=== PATIENT | female | born 1955 | race Two or more races ===

== ENCOUNTER → 2018-09-15 | Outpatient (CLI) | payer MEDICAID | END | disposition home or self-care (01) | LOC: Rad HDHVI 12:53 | PROVIDERS: ATTEND Internal Medicine | DX: I25.10 Atherosclerotic heart disease of native coronary artery without angina pectoris (principal); I11.9 Hypertensive heart disease without heart failure; R07.89 Other chest pain | CPT/HCPCS: 93306 ==

== ENCOUNTER → 2018-09-30 | Outpatient (CLI) | payer MEDICAID ==
[~2018-09-30] VITALS: Ht 162.6 cm; Wt 63.5 kg
== END | disposition home or self-care (01) ==
LOC: Rad HDHVI 12:22
PROVIDERS: ATTEND Internal Medicine Cardiovascular Disease
DX: I25.10 Atherosclerotic heart disease of native coronary artery without angina pectoris (principal); I10 Essential (primary) hypertension; E78.5 Hyperlipidemia, unspecified; R06.00 Dyspnea, unspecified; M54.9 Dorsalgia, unspecified; G89.29 Other chronic pain; Z87.891 Personal history of nicotine dependence
CPT/HCPCS: 78452; 93017; 96374; A9500

== ENCOUNTER 2018-11-04 09:02 | Day surgery (SDC) | payer MEDICAID ==
[2018-11-02 14:18] LABS: Basophils # (auto) 0 uL; Basophils % (auto) 0.2 % (0.0-2.0); Eosinophils # (auto) 0.2 uL; Eosinophils % (auto) 2.4 % (0.0-7.0); Hematocrit 38.2 % (36.0-46.0); Hemoglobin 12.7 g/dL (12.2-16.2); Lymphocytes # (auto) 2.3 uL; Lymphocytes % (auto) 30.8 % (10.0-50.0); Mean Corpuscular Hemoglobin 32.3 pg (28.0-32.0); Mean Corpuscular Hgb Conc. 33.3 g/dL (32.0-36.0); Mean Corpuscular Volume 97.1 fL (80.0-100.0); Monocytes # (auto) 0.6 uL; Monocytes % (auto) 7.4 % (0.0-12.0); Neutrophils # (auto) 4.4 uL; Neutrophils % (auto) 59.2 % (37.0-80.0); Nucleated Red Blood Cells % 0.1 %; Platelet Count (auto) 256 10^3/uL (140-450); Red Blood Cells 3.93 10^6/uL (4.0-5.20); Red Cell Distribution Width 14.2 % (11.8-14.3); White Blood Cell 7.5 10^3/uL (4.4-10.8)
[2018-11-02 14:34] LABS: INR < 0.93 (0.9-1.15)
[2018-11-02 14:42] LABS: Albumin 3.7 g/dL (3.4-5.0); BUN/Creatinine Ratio 26.7; Calcium 9.6 mg/dL (8.5-10.1); Potassium 3.9 mmol/L (3.5-5.1)
[2018-11-02 14:44] LABS: Urine Bacteria FEW /hpf (None Seen); Urine Blood TRACE /uL (Negative); Urine Hyaline Cast MOD /lpf (0 - 2); Urine Mucus FEW (None Seen); Urine Specific Gravity 1.023 (1.001-1.035); Urine WBC 11 /hpf (0 - 5)
[2018-11-02 14:45] LABS: Bilirubin, Total 0.3 mg/dL (0.2-1.0); Total Protein 7.3 g/dL (6.4-8.2)
[~2018-11-04] VITALS: Ht 160 cm; Wt 63.5 kg
[~2018-11-04 09:02] MED LIST: AMLO5TAB15 PO; ATOR40TA52 PO; CALC600T57 PO; CHOL1000 PO; CYCL1TAB18 PO; DICL1GEL35 TD; FLUO60TA7 PO; GABA300C10 PO; HYDR-392 PO; IBUP800T24 PO; LIDO5DIS21 TOP; PANT40TA2 PO
[2018-11-04] MEDS ORDERED: ceFAZolin 1GM/50ML 50 ML IV ONE (09:41)
[2018-11-04] MEDS ORDERED: ROPIVACAINE 0.5% (5MG/ML) 20ML AMPULE IJ ONE ×2 (10:54→11:22)
[2018-11-04] MEDS ORDERED: LIDOCAINE 1% HCL (LOCAL ANESTH.) INJ 20ML MDV ONE (11:05)
[2018-11-04] MEDS ORDERED: SUCCINYLCHOLINE CHLORIDE 20 MG/ML 10ML VIAL IV ONE (11:05)
[2018-11-04] MEDS ORDERED: MIDAZOLAM HCL 1MG/1ML-2 ML VIAL ONE (11:07)
[2018-11-04] MEDS ORDERED: METOCLOPRAMIDE HCL 5MG/ml INJ 2ml VIAL ONE (11:07)
[2018-11-04] MEDS ORDERED: KETAMINE HCL 1 ML ONE (11:10)
[2018-11-04] MEDS ORDERED: diphenhdrAMINE HCL 50 MG/1 ML VL ONE (11:10)
[2018-11-04] MEDS ORDERED: GLYCOPYRROLATE 0.2 MG/ML 1ML VIAL ONE (11:10)
[2018-11-04] MEDS ORDERED: PROPOFOL 10 MG/ML 20 ML IV ONE (11:11)
[2018-11-04] MEDS ORDERED: fentaNYL CITRATE 100 MCG/2 ML VL ONE (11:21)
[2018-11-04] MEDS ORDERED: HYDROmorphone HCL 2 MG/ML VL IV PRN (11:30)
[2018-11-04] MEDS ORDERED: ONDANSETRON HCL 4 MG/2 ML VIAL IV ONE (11:30)
[2018-11-04] MEDS ORDERED: NALOXONE HCL 0.4 MG/ML VIAL IV PRN (11:30)
[2018-11-04 12:48] VITALS: BP 120/76
== END 2018-11-04 13:30 | disposition home or self-care (01) ==
LOC: SUR 09:02
PROVIDERS: ATTEND Podiatrist Foot & Ankle Surgery
DX: M20.11 Hallux valgus (acquired), right foot (principal); K58.9 Irritable bowel syndrome, unspecified; D64.9 Anemia, unspecified; I10 Essential (primary) hypertension; K21.9 Gastro-esophageal reflux disease without esophagitis; E78.00 Pure hypercholesterolemia, unspecified; M19.90 Unspecified osteoarthritis, unspecified site; G47.33 Obstructive sleep apnea (adult) (pediatric); G62.9 Polyneuropathy, unspecified; F32.9 Major depressive disorder, single episode, unspecified; Z79.899 Other long term (current) drug therapy; Z90.710 Acquired absence of both cervix and uterus; Z98.890 Other specified postprocedural states
CPT/HCPCS: 28296; 36415; 73620; 80053; 81001; 85025; 85610; 85730; C1713; C1769; J0690; J1200; J2001; J2250; J2704; J2765; J2795; J3010; L3260; J0330